=== PATIENT | female | born 1945 ===

== ENCOUNTER 2020-08-08 00:05 | Day surgery (SDC) | payer MEDICARE ==
[2020-08-08] MEDS ORDERED: POTCHL20ER (09:13)
[2020-08-08] MEDS ORDERED: ASPI81CH PO (09:13)
[2020-08-08] MEDS ORDERED: EUTHYROX88 MCG PO (09:14)
[2020-08-08] MEDS ORDERED: SPIR25 PO (09:14)
[2020-08-08] MEDS ORDERED: FURO40 PO (09:14)
[2020-08-08] MEDS ORDERED: METO25ER (09:14)
[2020-08-08] MEDS ORDERED: ATOR20 PO (09:15)
[2020-08-08] MEDS ORDERED: TUMS500 MG PO (09:16)
[2020-08-08] MEDS ORDERED: Vitamin D2000 UNIT PO (09:17)
[2020-08-08] MEDS ORDERED: OMEP20ER PO (09:18)
[2020-08-08] MEDS ORDERED: MERIBIN5 MG PO (09:19)
== END 2020-08-08 08:45 | disposition home or self-care (01) ==
LOC: ATC 00:05
DX: Z45.2 Encounter for adjustment and management of vascular access device (principal); Z95.828 Presence of other vascular implants and grafts; I25.810 Atherosclerosis of coronary artery bypass graft(s) without angina pectoris; Z95.0 Presence of cardiac pacemaker; I10 Essential (primary) hypertension; M19.90 Unspecified osteoarthritis, unspecified site; E89.0 Postprocedural hypothyroidism; Z79.899 Other long term (current) drug therapy; Z79.82 Long term (current) use of aspirin; Z88.0 Allergy status to penicillin; Z88.2 Allergy status to sulfonamides; Z88.8 Allergy status to other drugs, medicaments and biological substances; Z88.1 Allergy status to other antibiotic agents; Z95.1 Presence of aortocoronary bypass graft; Z95.2 Presence of prosthetic heart valve
CPT/HCPCS: 96523; J1642

== ENCOUNTER 2020-11-17 09:40 | Day surgery (SDC) | payer MEDICARE, OTHER ==
[~2020-11-17 09:40] MED LIST: ALLOPURINOL100 M1 PO; ASPI81CH PO; ATOR20 PO; EUTHYROX88 MCG PO; FURO40 PO; MERIBIN5 MG PO; METO25ER; OMEP20ER PO; POTCHL20ER; SPIR25 PO; TUMS500 MG PO; Vitamin D2000 UNIT PO
== END 2020-11-17 11:41 | disposition home or self-care (01) ==
LOC: ATC 09:40
DX: Z45.2 Encounter for adjustment and management of vascular access device (principal); I25.10 Atherosclerotic heart disease of native coronary artery without angina pectoris; I10 Essential (primary) hypertension; I25.2 Old myocardial infarction; M81.0 Age-related osteoporosis without current pathological fracture; E03.9 Hypothyroidism, unspecified; I48.91 Unspecified atrial fibrillation; M19.90 Unspecified osteoarthritis, unspecified site; G89.29 Other chronic pain; M54.9 Dorsalgia, unspecified; F32.9 Major depressive disorder, single episode, unspecified; Z88.0 Allergy status to penicillin; Z88.1 Allergy status to other antibiotic agents; Z88.2 Allergy status to sulfonamides; Z88.8 Allergy status to other drugs, medicaments and biological substances; Z79.82 Long term (current) use of aspirin; Z79.899 Other long term (current) drug therapy; Z95.1 Presence of aortocoronary bypass graft; Z95.0 Presence of cardiac pacemaker; Z86.73 Personal history of transient ischemic attack (TIA), and cerebral infarction without residual deficits; Z20.822 Contact with and (suspected) exposure to COVID-19
CPT/HCPCS: J1642

== ENCOUNTER 2020-12-22 01:55 | Day surgery (SDC) | payer MEDICARE, OTHER | END 2020-12-22 09:48 | disposition home or self-care (01) | LOC: ATC 01:55 | DX: I25.810 Atherosclerosis of coronary artery bypass graft(s) without angina pectoris (principal); E03.9 Hypothyroidism, unspecified; M10.9 Gout, unspecified; M19.90 Unspecified osteoarthritis, unspecified site; Z95.828 Presence of other vascular implants and grafts; Z95.0 Presence of cardiac pacemaker; Z88.0 Allergy status to penicillin; Z88.2 Allergy status to sulfonamides; Z88.8 Allergy status to other drugs, medicaments and biological substances | CPT/HCPCS: 96523; J1642 ==

== ENCOUNTER 2021-01-19 00:37 | Day surgery (SDC) | payer MEDICARE, OTHER ==
[2021-01-19 10:01] LABS: BASOPHILS ABSOLUTE AUTO 0.04 K/mm3 (0.00-0.23); BASOPHILS PERCENT AUTO 1 % (0-2); EOSINOPHILS ABSOLUTE AUTO 0.22 K/mm3 (0.00-0.68); EOSINOPHILS PERCENT AUTO 3 % (0-6); Hematocrit 40.9 % (33.0-51.0); Hemoglobin 13.6 g/dL (11.5-16.0); IMMATURE GRAN ABSOLUTE AUTO 0.02 K/mm3 (0.00-0.10); IMMATURE GRAN PERCENT AUTO 0 % (0-1); LYMPHOCYTES ABSOLUTE AUTO 1.73 K/mm3 (0.84-5.20); LYMPHOCYTES PERCENT AUTO 21 % (21-46); MONOCYTES ABSOLUTE AUTO 0.53 K/mm3 (0.16-1.47); MONOCYTES PERCENT AUTO 6 % (4-13); Mean Corpuscular HGB 29.7 pg (26.0-34.0); Mean Corpuscular HGB Conc 33.3 g/dL (31.5-36.5); Mean Corpuscular Volume 89 fL (80-100); Mean Platelet Volume 10.1 fL (9.1-12.4); NEUTROPHILS ABSOLUTE AUTO 5.76 K/mm3 (1.96-9.15); NEUTROPHILS PERCENT AUTO 69 % (41-73); Platelet Count 229 K/mm3 (150-400); RDW Coefficient Variation 14.1 % (11.7-14.2); RDW Standard Deviation 46.5 fL (35.1-46.3); Red Blood Cell Count 4.58 M/mm3 (3.80-5.20)
[2021-01-19 10:28] LABS: Alanine Aminotransfer (ALT/SGP 19 U/L (12-78); Albumin, Blood 3.4 g/dL (3.4-5.0); Albumin/Globulin Ratio 0.8 (0.8-1.8); Alk Phos 100 U/L (50-136); Anion Gap 8 mmol/L (6-16); Aspartate Aminotrans (AST/SGOT 18 U/L (12-37); Bilirubin, Total 0.7 mg/dL (0.1-1.0); Blood Urea Nitrogen 25 mg/dL (8-24); Bun/Creatinine Ratio 24.8 (12.0-20.0); CHOL/HDL RATIO 2.7; CO2, Blood 29 mmol/L (21-32); Calcium, Blood 9.5 mg/dL (8.5-10.1); Chloride, Blood 103 mmol/L (98-108); Cholesterol 149 mg/dL (50-200); Creatinine, Blood 1.01 mg/dL (0.40-1.00); Globulin, Blood 4.2 g/dL (2.2-4.0); Glomerular Filtration Rate 57 (60-); Glucose, Blood 90 mg/dL (70-99); HDL Cholesterol 55 mg/dL (>39); LDL/HDL RATIO 1.4; Low Density Lipoprotein Chol 74 mg/dL (0-110); Potassium, Blood 3.8 mmol/L (3.5-5.5); Sodium, Blood 140 mmol/L (136-145); Thyroid Stimulating Hormone 0.198 uIU/mL (0.360-4.800); Total Protein, Blood 7.6 g/dL (6.4-8.2); Triglycerides 98 mg/dL (30-160); Uric Acid, Blood 4.6 mg/dL (2.6-6.0); Very Low Density Lipoprot Chol 19 mg/dL (6-32)
== END 2021-01-19 10:50 | disposition home or self-care (01) ==
LOC: ATC 00:37
PROVIDERS: Nurse Practitioner Family
DX: I25.810 Atherosclerosis of coronary artery bypass graft(s) without angina pectoris (principal); I10 Essential (primary) hypertension; M81.0 Age-related osteoporosis without current pathological fracture; M10.9 Gout, unspecified; E89.0 Postprocedural hypothyroidism; M19.90 Unspecified osteoarthritis, unspecified site; K21.9 Gastro-esophageal reflux disease without esophagitis; Z96.651 Presence of right artificial knee joint; Z95.828 Presence of other vascular implants and grafts; Z95.0 Presence of cardiac pacemaker; Z95.2 Presence of prosthetic heart valve; Z79.82 Long term (current) use of aspirin
CPT/HCPCS: 36591; 80053; 80061; 83036; 84443; 84550; 85025; J1642

== ENCOUNTER 2021-03-23 00:12 | Day surgery (SDC) | payer MEDICARE, OTHER | END 2021-03-23 14:08 | disposition home or self-care (01) | LOC: ATC 00:12 | DX: Z45.2 Encounter for adjustment and management of vascular access device (principal); Z95.0 Presence of cardiac pacemaker; Z95.828 Presence of other vascular implants and grafts | CPT/HCPCS: 96523; J1642 ==

== ENCOUNTER 2021-05-11 04:41 | Day surgery (SDC) | payer MEDICARE, OTHER | END 2021-05-11 13:40 | disposition home or self-care (01) | LOC: ATC 04:41 | DX: Z45.2 Encounter for adjustment and management of vascular access device (principal); Z95.828 Presence of other vascular implants and grafts; Z95.0 Presence of cardiac pacemaker; I25.810 Atherosclerosis of coronary artery bypass graft(s) without angina pectoris; I10 Essential (primary) hypertension; M81.0 Age-related osteoporosis without current pathological fracture; M10.9 Gout, unspecified; E89.0 Postprocedural hypothyroidism | CPT/HCPCS: 96523; J1642 ==